=== PATIENT | female | born 1975 | race Caucasian/White ===

== ENCOUNTER 2017-08-25 14:57 | Emergency (ER) | payer BC ==
[2017-08-25 15:16] VITALS: BP 139/82
--- NOTE | 2017-08-25 15:26 | EDM.PDOC ---
ED HPI GENERAL MEDICAL PROBLEM - General Chief Complaint: ENT Problem Time Seen by Provider: 08/25/17 15:20 Source of Information: Reports: Patient History Limitations: Reports: No Limitations - History of Present Illness INITIAL COMMENTS - FREE TEXT/NARRATIVE: 42-year-old female with known exposure to 3 members of her family with positive strep. Over the past 24 hours she's developed a sore throat and some neck soreness. Low-grade fever. No cough or congestion. 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: Musculoskeletal History: Reports: Arthritis, Back Pain, Chronic Psychiatric History: Reports: Depression Social & Family History - Tobacco Use Smoking Status *Q: Current Every Day Smoker Years of Tobacco use: 20 Packs/Tins Daily: 0.5 Second Hand Smoke Exposure: Yes - Caffeine Use Caffeine Use: Reports: Coffee, Soda - Alcohol Use Days Per Week of Alcohol Use: 0 - Recreational Drug Use Recreational Drug Use: No ED ROS ENT - Review of Systems Review Of Systems: See Below Constitutional: Reports: Chills, Malaise HEENT: Denies: Rhinitis Respiratory: Denies: Shortness of Breath, Cough Cardiovascular: Denies: Chest Pain GI/Abdominal: Denies: Nausea, Vomiting ED EXAM, ENT - Physical Exam Exam: See Below Exam Limited By: No Limitations General Appearance: Alert, No Apparent Distress Mouth/Throat: Pharyngeal Erythema. No: Tonsillar Exudates Head: Atraumatic Neck: No: Lymphadenopathy (R), Lymphadenopathy (L) Respiratory/Chest: No Respiratory Distress Course - Vital Signs Last Recorded V/S: Last Vital Signs Temp 97.9 F 08/25/17 15:17 Pulse 64 08/25/17 15:17 Resp 16 08/25/17 15:17 BP 139/82 08/25/17 15:17 Pulse Ox 98 08/25/17 15:17 - Re-Assessments/Exams Free Text/Narrative Re-Assessment/Exam: 08/25/17 15:26 Patient will be placed on amoxicillin 500 mg 3 times daily to take at least 7 days if improving. Recheck in 3-4 days if not improving satisfactorily. Departure - Departure Time of Disposition: 15:39 Disposition: Home, Self-Care 01 Condition: Good Clinical Impression: Strep pharyngitis - Discharge Information Instructions: Strep Throat, [id number] Referrals: Darwin Chris PA-C [Primary Care Provider] - Forms: ED Department Discharge Care Plan Goals: Take antibiotic 3 times a day for at least 7 days, and consider rechecking in 2- 3 days if not improving satisfactorily.
== END 2017-08-25 15:39 | disposition home or self-care (01) ==
LOC: JP.ED 14:57
DX: J02.0 Streptococcal pharyngitis (principal); F17.210 Nicotine dependence, cigarettes, uncomplicated; Z79.899 Other long term (current) drug therapy
CPT/HCPCS: 99283

== ENCOUNTER 2020-04-10 00:24 | Emergency (ER) | payer OTHER ==
[2020-04-10] MEDS ORDERED: Rabies Vaccine (Avian) 2.5 Unit Inj Kit IM ONE (00:47)
--- NOTE | 2020-04-10 00:51 | EDM.PDOC ---
ED HPI GENERAL MEDICAL PROBLEM - General Chief Complaint: Bite:Animal, Insect Stated Complaint: BAT BITE Time Seen by Provider: 04/10/20 00:48 Source of Information: Reports: Patient History Limitations: Reports: No Limitations - History of Present Illness INITIAL COMMENTS - FREE TEXT/NARRATIVE: 44 yo female here after a bat was found in the home and it bit her on the finger. Here for rabies prevention. Mom was able to capture the bat. 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) (none) denies pain Pain Score (Numeric/FACES): 0 - Related Data Allergies Allergy/AdvReac Type Severity Reaction Status Date / Time No Known Allergies Allergy Verified 04/10/20 01:02 Home Meds: Home Meds DULoxetine [Cymbalta] 60 mg PO DAILY 09/29/14 [History] Past Medical History - Past Health History Medical/Surgical History: Denies 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: Musculoskeletal History: Reports: Arthritis, Back Pain, Chronic Psychiatric History: Reports: Depression Social & Family History - Caffeine Use Caffeine Use: Reports: Coffee, Soda ED ROS GENERAL - Review of Systems Review Of Systems: See Below Constitutional: Reports: No Symptoms Skin: Reports: Other (puncture of R index finger tip) Neurological: Reports: No Symptoms ED EXAM, ANIMAL BITE - Physical Exam Exam: See Below Exam Limited By: No Limitations General Appearance: Alert, WD/WN, No Apparent Distress Neurological: Alert, Oriented, CN II-XII Intact, Normal Cognition, No Motor/Sensory Deficits Psychiatric: Normal Affect, Normal Mood Skin Exam: Normal Color, Warm/Dry, Other (no wound noted) Course - Vital Signs Last Recorded V/S: Last Vital Signs Temp 35.1 C L 04/10/20 01:03 Pulse 63 04/10/20 01:03 Resp 16 04/10/20 01:03 BP 131/79 04/10/20 01:03 Pulse Ox 98 04/10/20 01:03 - Orders/Labs/Meds Orders: Active Orders 24 hr Category Date Time Status Vaccines to be Administered [RC] PER UNIT ROUTINE Care 04/10/20 00:47 Active Meds: Medications Discontinued Medications Generic Name Dose Route Start Last Admin Trade Name Bassam PRN Reason Stop Dose Admin Rabies Immune Globulin 2,100 unit 04/10/20 01:08 Hyperrab 300 Unit/Ml Vial IM 04/10/20 01:09 ONETIME ONE Rabies Vaccine 2.5 unit 04/10/20 00:47 Rabavert IM 04/10/20 00:48 .ONCE ONE Departure - Departure Time of Disposition: 01:40 Disposition: Home, Self-Care 01 Condition: Good Clinical Impression: Bat bite of finger Qualifiers: Encounter type: initial encounter Qualified Code(s): S61.259A - Open bite of unspecified finger without damage to nail, initial encounter; W55.81XA - Bitten by other mammals, initial encounter - Discharge Information *PRESCRIPTION DRUG MONITORING PROGRAM REVIEWED*: No *COPY OF PRESCRIPTION DRUG MONITORING REPORT IN PATIENT MISHA: No Instructions: Animal Bite, Adult, [id number] Referrals: Michael Hopper [Primary Care Provider] - Forms: ED Department Discharge Additional Instructions: Unless you have the bat tested and it tests negative for rabies, you will need to repeat rabies vaccinations at days 3, 7, and 14. Today is day 1. Sepsis Event Note (ED) - Focused Exam Vital Signs: Vital Signs Temp Pulse Resp BP Pulse Ox 04/10/20 01:03 35.1 C L 63 16 131/79 98 04/10/20 00:57 35.1 C L 63 16 131/79 98 - My Orders Last 24 Hours: My Active Orders 04/10/20 00:47 Vaccines to be Administered [RC] PER UNIT ROUTINE - Assessment/Plan Last 24 Hours: My Active Orders 04/10/20 00:47 Vaccines to be Administered [RC] PER UNIT ROUTINE
[2020-04-10 00:58] VITALS: BP 131/79; PULSE 63
[2020-04-10] MEDS ORDERED: Rabies Immune Globulin/PF 300 UNIT/ML 1 ML SDV IM ONE (01:08)
== END 2020-04-10 02:26 | disposition home or self-care (01) ==
LOC: JP.ED 00:24
DX: S61.250A Open bite of right index finger without damage to nail, initial encounter (principal); F32.9 Major depressive disorder, single episode, unspecified; Z79.899 Other long term (current) drug therapy; W55.81XA Bitten by other mammals, initial encounter
CPT/HCPCS: 90375; 90472; 90675; 96372; 99283

== ENCOUNTER 2020-07-22 10:22 | Emergency (ER) | payer OTHER ==
--- NOTE | 2020-07-22 11:21 | EDM.PDOC ---
ED HPI GENERAL MEDICAL PROBLEM - General Chief Complaint: Headache Stated Complaint: fell at school Time Seen by Provider: 07/22/20 11:07 Source of Information: Reports: Patient History Limitations: Reports: No Limitations - History of Present Illness INITIAL COMMENTS - FREE TEXT/NARRATIVE: pt arrived with a headache and difficulty focusing her eyes. She is very lite sensitive. pt was at school today and she slipped by her car. She hit her head on the car. She then developed the headache and visual symptoms. Onset: Today, Sudden Duration: Hour(s):, Other Associated Symptoms: Reports: Headaches, Nausea/Vomiting, Other ( visual symptoms. 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: Musculoskeletal History: Reports: Arthritis, Back Pain, Chronic Psychiatric History: Reports: Depression - Infectious Disease History Infectious Disease History: Reports: None - Past Surgical History HEENT Surgical History: Reports: None Cardiovascular Surgical History: Reports: None GI Surgical History: Reports: None Female Surgical History: Reports: Hysterectomy, Other (See Below) Other Female Surgeries/Procedures: hysterectomy Jul 2019 Social & Family History - Tobacco Use Tobacco Use Status *Q: Current Every Day Tobacco User Years of Tobacco use: 20 Packs/Tins Daily: 0.5 - Caffeine Use Caffeine Use: Reports: Soda - Recreational Drug Use Recreational Drug Use: No ED ROS GENERAL - Review of Systems Review Of Systems: See Below Constitutional: Reports: No Symptoms HEENT: Reports: Other (pt is lite sensitve) Respiratory: Reports: No Symptoms Cardiovascular: Reports: No Symptoms Endocrine: Reports: No Symptoms GI/Abdominal: Reports: No Symptoms : Reports: No Symptoms Musculoskeletal: Reports: No Symptoms Skin: Reports: No Symptoms Neurological: Reports: Headache, Other ( visual symptoms with lite sensitivity. ) Psychiatric: Reports: Anxiety ED EXAM, HEAD INJURY - Physical Exam Exam: See Below Text/Narrative:: pt arrived after a fall at school where she hit the back of her head about 3 hours ago. She now has a severe headache. She is very lite sensitve and she has nausea. She is having difficulty focusing. Exam Limited By: No Limitations General Appearance: Alert, Anxious, Moderate Distress, Other (pupils are equal and reactive. ) Head: Atraumatic Ears: Normal TMs Nose: Normal Inspection Throat/Mouth: Normal Inspection Neck: Muscle Spasm Respiratory: No Respiratory Distress Cardiovascular: Regular Rate, Rhythm GI/Abdominal Exam: Soft, Non-Tender (Female) Exam: Deferred Rectal (Female) Exam: Deferred Back Exam: Normal Inspection Extremities: Normal Inspection Neurologic: Alert, Oriented x 3, Other (pt has good recall and does not appear to have memory loss) Course - Vital Signs Last Recorded V/S: Last Vital Signs Temp 36.3 C 07/22/20 10:41 Pulse 70 07/22/20 13:09 Resp 16 07/22/20 13:09 BP 125/82 07/22/20 13:09 Pulse Ox 100 07/22/20 13:09 - Orders/Labs/Meds Meds: Medications Discontinued Medications Generic Name Dose Route Start Last Admin Trade Name Freq PRN Reason Stop Dose Admin Hydromorphone HCl 0.5 mg 07/22/20 11:48 07/22/20 11:57 Dilaudid IM 07/22/20 11:49 0.5 mg ONETIME ONE Administration - Re-Assessments/Exams Free Text/Narrative Re-Assessment/Exam: 07/22/20 13:55 cat scan revealed no hemmorage. There was a questionable area in the semiovale on the left. A MRI of the head was obtained which revealed this area to be a cyst. Pt appeArs to not have memory loss. Her headache is better and visual symptoms are better . Departure - Departure Time of Disposition: 13:57 Disposition: Home, Self-Care 01 Condition: Fair Clinical Impression: Contusion of head - Discharge Information Instructions: Contusion, [id number] Referrals: PCP,None [Primary Care Provider] - Forms: ED Department Discharge Care Plan Goals: low activity today and tomorrow may resume usual activities after that. rtc if on going problenms. Sepsis Event Note (ED) - Evaluation Sepsis Screening Result: No Definite Risk
--- NOTE | 2020-07-22 11:34 | CT ---
Head wo Cont CLINICAL HISTORY: Blow to the head, visual symptoms COMPARISON: None TECHNIQUE: Transverse scans were obtained from the base of the skull through the vertex without IV contrast on a multislice, multidetector CT scanner. Auto dosage reduction and iterative reconstruction techniques employed. FINDINGS: There is a 5 mm low-attenuation focus in the left centrum semiovale. This is fairly well demarcated. This is too small to characterize. There is no mass effect, hemorrhage, or extraaxial collection. The basal cisterns and sulci over the convexities are normal. The ventricles are relatively normal size. There is mild asymmetry in the lateral ventricles with the right being larger than left. This is likely congenital. IMPRESSION: No evidence of hemorrhage or extra-axial collection 5 mm rounded hypodensity in the left centrum semiovale of questional significance. This is too small to characterize. MRI is a consideration
[2020-07-22] MEDS ORDERED: HYDROmorphone 0.5 MG/0.5 ML Syringe IM ONE (11:48)
[2020-07-22 13:10] VITALS: BP 125/82; PULSE 70
--- NOTE | 2020-07-22 13:42 | MR ---
Brain wo Cont CLINICAL HISTORY: Abnormal head CT COMPARISON: Current head CT TECHNIQUE: Multiple axial, sagittal, and coronal images were obtained on a 1.5 T magnet with multiweighted sequences, FLAIR, and diffusion imaging without contrast. FINDINGS: There is no focal mass lesion. There is a CSF signal well-demarcated focus in the left posterior centrum semiovale. It is well demarcated. There is no hemmorhage or extraaxial collection. There are a few scattered the small T2 hyperintensities on FLAIR image. There is no restricted diffusion. The basal cisterns and sulci over the convexities are normal. The ventricles are normal. IMPRESSION: Small CSF focus in the left the parietal lobe correlates with CT findings. This likely represents a small cyst. This is likely congenital or remote chronology. Minimal chronic ischemic microvascular changes
== END 2020-07-22 14:04 | disposition home or self-care (01) ==
LOC: JP.ED 10:22
DX: S00.93XA Contusion of unspecified part of head, initial encounter (principal); F32.9 Major depressive disorder, single episode, unspecified; F17.210 Nicotine dependence, cigarettes, uncomplicated; Z90.710 Acquired absence of both cervix and uterus; W01.198A Fall on same level from slipping, tripping and stumbling with subsequent striking against other object, initial encounter; Y92.219 Unspecified school as the place of occurrence of the external cause
CPT/HCPCS: 70450; 70551; 96372; 99284; J1170

== ENCOUNTER 2021-04-10 09:25 | Emergency (ER) | payer OTHER ==
[2021-04-10 09:45] VITALS: BP 146/86; PULSE 72
[2021-04-10] MEDS ORDERED: predniSONE 20 MG Tab PO ONE (10:00)
--- NOTE | 2021-04-10 10:41 | EDM.PDOC ---
ED HPI GENERAL MEDICAL PROBLEM - General Chief Complaint: General Stated Complaint: LEFT SIDE OF FACE IS NUMB AND SEVERE SHOULDER PAIN Time Seen by Provider: 04/10/21 09:55 Source of Information: Reports: Patient History Limitations: Reports: No Limitations - History of Present Illness INITIAL COMMENTS - FREE TEXT/NARRATIVE: 45-year-old female who was developed left-sided facial weakness over the past 48 hours. She also has a small amount of numbness on the left lateral tongue, a little bit of difficulty closing her left eye but no dysarthria, expressive aphasia, and no peripheral symptoms of her arms or legs. She has been struggling with a tightness or pain in the posterior left shoulder for the last several days, was seen in the clinic and given some Flexeril but that has not helped. This morning she noticed the facial weakness was worse so wanted it checked. No headache, no fevers, no rash, no joint pains. Onset: Gradual Duration: Day(s): (2 days) Location: Reports: Face (Left-sided) Associated Symptoms: Reports: No Other Symptoms, Other (Pain in her posterior left shoulder has unknown relationship to current symptoms) Left Shoulder Pain Score (Numeric/FACES): 6 - Related Data Allergies Allergy/AdvReac Type Severity Reaction Status Date / Time No Known Allergies Allergy Verified 04/10/21 09:44 Home Meds: Home Meds DULoxetine [Cymbalta] 60 mg PO DAILY 09/29/14 [History] ARIPiprazole [Abilify] 10 mg PO DAILY 04/10/21 [History] Cyclobenzaprine [Flexeril] 10 mg PO ASDIRECTED 04/10/21 [History] Doxycycline [Vibramycin] 100 mg PO BID #40 cap 04/10/21 [Rx] predniSONE [Prednisone] 60 mg PO DAILY #12 tablet 04/10/21 [Rx] Past Medical History - Past Health History Medical/Surgical History: Denies Medical/Surgical History HEENT History: Reports: None Cardiovascular History: Reports: None Respiratory History: Reports: None Gastrointestinal History: Reports: 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: Musculoskeletal History: Reports: Arthritis, Back Pain, Chronic Psychiatric History: Reports: Depression - Infectious Disease History Infectious Disease History: Reports: None - Past Surgical History Female Surgical History: Reports: Hysterectomy, Other (See Below) Other Female Surgeries/Procedures: hysterectomy Jul 2019 Social & Family History - Tobacco Use Tobacco Use Status *Q: Heavy Tobacco User Years of Tobacco use: 20 Packs/Tins Daily: 1 - Caffeine Use Caffeine Use: Reports: Coffee - Recreational Drug Use Recreational Drug Use: No ED ROS GENERAL - Review of Systems Review Of Systems: See Below Constitutional: Denies: Fever, Chills HEENT: Denies: Vision Change Respiratory: Denies: Shortness of Breath, Cough Cardiovascular: Denies: Chest Pain GI/Abdominal: Denies: Abdominal Pain, Nausea, Vomiting Musculoskeletal: Reports: Other (Pain localized over the rhomboid minor on the left side, no other joint or musculoskeletal complaints) Skin: Denies: Rash Neurological: Reports: Paresthesia (Numbness and paresthesias of the left side of the face, also left facial weakness) ED EXAM, GENERAL - Physical Exam Exam: See Below Exam Limited By: No Limitations General Appearance: Alert, No Apparent Distress Eye Exam: Left Eye: Periorbital Changes (Patient cannot close her left eye but it is more difficult than closing the right eye), Bilateral Eye: Other (Patient has obvious periorbital weakness around the left eye) Ears: Normal TMs Head: Atraumatic Neck: Normal Inspection, Supple, Non-Tender Respiratory/Chest: Lungs Clear Back Exam: Other (She is tender to palpation on the medial aspect of the left scapula over the rhomboid minor, no significant trapezius tenderness) Neurological: Alert, Oriented, Other (Left facial weakness is present diffusely) Psychiatric: Normal Affect, Normal Mood Course - Vital Signs Last Recorded V/S: Last Vital Signs Temp 97.8 F 04/10/21 09:45 Pulse 72 04/10/21 09:45 Resp 16 04/10/21 09:45 BP 146/86 H 04/10/21 09:45 Pulse Ox 99 04/10/21 09:45 - Orders/Labs/Meds Orders: Active Orders 24 hr Category Date Time Status HUMAN GRANULOCYTIC ELZBIETA-HGE Urgent Lab 04/10/21 10:10 Received LYME, LINE BLOT, SERUM Urgent Lab 04/10/21 10:10 Received Labs: Laboratory Tests 04/10/21 Range/Units 10:10 Lyme Disease IgG Ab Positive (Negative) Lyme Disease IgM Ab Positive H (Negative) Meds: Medications Discontinued Medications Generic Name Dose Route Start Last Admin Trade Name Freq PRN Reason Stop Dose Admin Prednisone 60 mg 04/10/21 10:00 04/10/21 10:18 Prednisone 20 Mg Tab PO 04/10/21 10:01 60 mg ONETIME ONE Administration - Re-Assessments/Exams Free Text/Narrative Re-Assessment/Exam: 04/10/21 10:41 Lymes IgG and IgM titers were obtained, and the patient was given 60 mg of prednisone. If the titers are negative, prednisone will be continued for a total of 5 days. If positive doxycycline will be added. 04/10/21 11:33 Lyme's is positive, patient will be put on doxycycline 100 twice daily for 20 days. Continue prednisone 60 mg daily in the morning with food for 4 more consecutive days. Return anytime if worsening or concerns. Departure - Departure Time of Disposition: 11:43 Disposition: Home, Self-Care 01 Clinical Impression: Left-sided Crabtree's palsy, Acute Lyme disease - Discharge Information Prescriptions: predniSONE [Prednisone] 60 mg PO DAILY #12 tablet Doxycycline [Vibramycin] 100 mg PO BID #40 cap Instructions: Crabtree Palsy, Adult, Lyme Disease Referrals: PCP,None [Primary Care Provider] - Forms: ED Department Discharge Care Plan Goals: Take medications as directed, increase activity as tolerated, and return anytime if worsening despite treatment. Keep your eye moist if you develop more weakness and have difficulty closing her left eye. Sepsis Event Note (ED) - Evaluation Sepsis Screening Result: No Definite Risk - Focused Exam Vital Signs: Vital Signs Temp Pulse Resp BP Pulse Ox 04/10/21 09:45 97.8 F 72 16 146/86 H 99 04/10/21 09:44 97.8 F 72 16 146/86 H 99 - My Orders Last 24 Hours: My Active Orders 04/10/21 10:10 HUMAN GRANULOCYTIC ELZBIETA-HGE Urgent LYME, LINE BLOT, SERUM Urgent - Assessment/Plan Last 24 Hours: My Active Orders 04/10/21 10:10 HUMAN GRANULOCYTIC ELZBIETA-HGE Urgent LYME, LINE BLOT, SERUM Urgent
[2021-04-14 14:15] LABS: HGE IGG TITER Negative (Neg:<1:64); HGE IGM TITER Negative (Neg:<1:20)
== END 2021-04-10 11:43 | disposition home or self-care (01) ==
LOC: JP.ED 09:25
DX: G51.0 Bell's palsy (principal); A69.20 Lyme disease, unspecified; Z72.0 Tobacco use
CPT/HCPCS: 86617; 86618; 86666; 99284; J7512